=== PATIENT | male | born 1990 | race Two or more races ===

== ENCOUNTER 2017-01-24 22:26 | Emergency (ER) | payer OTHER ==
[2017-01-24] MEDS ORDERED: ONDANSETRON 4 MG/2 ML VIAL IVP STA (22:50)
[2017-01-24] MEDS ORDERED: SODIUM CHLORIDE 0.9% 1,000 ML IV ONE (22:50)
[2017-01-24] MEDS ORDERED: LOPERAMIDE 2 MG CAPSULE PO STA (22:51)
[2017-01-24] MEDS ORDERED: LOPERAMIDE 2 MG CAPSULE PO ONE (23:08)
[2017-01-24] MEDS ORDERED: ONDANSETRON 4 MG/2 ML VIAL ONE (23:08)
[2017-01-24 23:11] LABS: BASOPHILS # (AUTO) 0.1 10^3/uL (0.0-0.1); BASOPHILS % (AUTO) 0.3 %; EOSINOPHILS # (AUTO) 0.3 10^3/uL (0.0-0.7); EOSINOPHILS % (AUTO) 1.3 %; HCT - HEMATOCRIT 51.8 % (42.0-52.0); HGB - HEMOGLOBIN 17.8 g/dL (14.0-18.0); LYMPHOCYTES # (AUTO) 1.1 10^3/uL (1.5-3.5); LYMPHOCYTES % (AUTO) 4.6 %; MEAN CORPUSCULAR HEMOGLOBIN 29.3 pg (27.0-31.0); MEAN CORPUSCULAR HGB CONC 34.4 g/dL (32.0-36.0); MEAN CORPUSCULAR VOLUME 85.1 fL (80.0-94.0); MEAN PLATELET VOLUME 7.5 fL (7.4-11.4); MONOCYTES # (AUTO) 1.5 10^3/uL (0.0-1.0); MONOCYTES % (AUTO) 6.3 %; NEUTROPHILS # (AUTO) 20.7 10^3/uL (1.5-6.6); NEUTROPHILS % (AUTO) 87.5 %; RED BLOOD COUNT 6.09 10^6/uL (4.70-6.10); RED CELL DISTRIBUTION WIDTH 12.6 % (12.0-15.0); UNCORRECTED WHITE BLOOD COUNT 23.7 x10^3/uL; WHITE BLOOD COUNT 23.7 x10^3/uL (4.8-10.8)
[2017-01-24 23:18] LABS: ALBUMIN/GLOBULIN RATIO 1.2 (1.0-2.2); BILIRUBIN,TOTAL 0.8 mg/dL (0.2-1.0); CALCIUM 10.2 mg/dL (8.5-10.3); CREATININE 1.1 mg/dL (0.6-1.2); POTASSIUM 4.1 mmol/L (3.5-5.0); TOTAL PROTEIN 9.6 g/dL (6.7-8.2)
[2017-01-24 23:23] LABS: BILIRUBIN,URINE NEGATIVE (NEGATIVE); UA CHARGE (STRIP ONLY) YES; UR CULTURE IF IND NOT INDICATED
[2017-01-25] MEDS ORDERED: SODIUM CHLORIDE 0.9% 1,000 ML IV ONE ×2 (00:38→04:36)
[2017-01-25] MEDS ORDERED: ACETAMINOPHEN 1,000 MG/100 ML 100 ML IV STA (00:39)
[2017-01-25] MEDS ORDERED: ACETAMINOPHEN 1,000 MG/100 ML 100 ML IV ONE (01:06)
[2017-01-25] MEDS ORDERED: ONDANSETRON 4 MG/2 ML VIAL IVP STA (03:04)
[2017-01-25] MEDS ORDERED: ONDANSETRON 4 MG/2 ML VIAL ONE (03:13)
[2017-01-25] MEDS ORDERED: IOPAMIDOL-300 100 ML VIAL ONE (04:43)
[2017-01-25] MEDS ORDERED: IOPAMIDOL-300 100 ML VIAL IVP ONE (05:11)
--- NOTE | 2017-01-25 05:26 | CT Preliminary Report ---
Exam: CT ABDOMEN/PELVIS W/ IMPRESSION: 1. Fatty liver. 2. Fluid-filled large and small bowel without evidence of obstruction. Findings are nonspecific. Mild enterocolitis is possible. 3. No appendicitis or diverticulitis seen. [facility] SITE ID: [id number]
--- NOTE | 2017-01-25 05:29 | CT Report ---
EXAM: CT ABDOMEN AND PELVIS EXAM DATE: 01/25/2017 05:01 AM. CLINICAL HISTORY: Heme+ diarrhea with WBC 23.7. Lower abdominal pain. COMPARISONS: None. TECHNIQUE: Routine helical CT imaging was performed through the abdomen and pelvis. IV contrast: 100 ML ISOVUE 300. Enteric contrast: No. Reconstructions: Coronal and sagittal. In accordance with CT protocol optimization, one or more of the following dose reduction techniques w ere utilized for this exam: automated exposure control, adjustment of mA and/or KV based on patient s ize, or use of iterative reconstructive technique. FINDINGS: Lung Bases: Unremarkable. Liver: Fatty infiltration. Gallbladder/Bile Ducts: Unremarkable. Spleen: Normal. Pancreas: Normal. Adrenal Glands: Normal. Kidneys: Normal. No masses or hydronephrosis. Peritoneal Cavity/Bowel: Nonspecific nondilated fluid-filled large and small bowel loops. No bowel ob struction seen. No diverticulitis. No lymphadenopathy. No free air or free fluid. Appendix appears no rmal. Pelvic Organs: Normal. The bladder and visualized pelvic organs are within normal limits. Vasculature: No aneurysms or other significant abnormality. Bones: No significant abnormality. Other: None. IMPRESSION: 1. Fatty liver. 2. Fluid-filled large and small bowel without evidence of obstruction. Findings are nonspecific. Mild enterocolitis is possible. 3. No appendicitis or diverticulitis seen. [facility] Referring Provider Line: [phone] SITE ID: [id number]
--- NOTE | 2017-01-25 05:38 | ED Physician Documentation ---
PD HPI ABD PAIN - Stated complaint Stated Complaint: N/V/D/F/C - Chief complaint Chief Complaint: Abd Pain - History obtained from History obtained from: Patient - History of Present Illness Timing - onset: How many hours ago (4) Timing - details: Still present Quality: Cramping Location: All over / everywhere Associated symptoms: Nausea, Diarrhea. No: Fever, Vomiting Similar symptoms before: Has not had sx before - Additional information Additional information: The patient is an otherwise healthy 26-year-old male who presents with diarrhea and cramping abdominal pain that started about 4 hours prior to arrival. He has had multiple episodes of watery diarrhea. He reports associated nausea, without vomiting. He denies fever, or dysuria. He last ate just prior to the onset of his symptoms when he had chicken tenders from [employer]. He denies history of similar symptoms in the past. Review of Systems Constitutional: reports: Chills, Myalgias. denies: Fever Ears: denies: Tinnitus/ringing Nose: denies: Congestion Throat: denies: Sore throat Cardiac: denies: Chest pain / pressure Respiratory: denies: Dyspnea, Cough GI: reports: Abdominal Pain, Nausea, Diarrhea. denies: Vomiting : denies: Dysuria Skin: denies: Rash Musculoskeletal: denies: Back pain, Extremity pain Neurologic: denies: Headache PD PAST MEDICAL HISTORY - Past Medical History Cardiovascular: None Respiratory: None Neuro: None Endocrine/Autoimmune: None GI: None - Present Medications Home Medications: Ambulatory Orders Medication Instructions Recorded Confirmed Promethazine [Phenergan] 25 - 50 mg PO Q6H PRN #10 tab 01/25/17 - Allergies Allergies/Adverse Reactions: Allergies Allergy/AdvReac Type Severity Reaction Status Date / Time No Known Drug Allergies Allergy Verified 01/24/17 22:33 - Social History Does the pt smoke?: No Smoking Status: Never smoker - Immunizations Immunizations are current?: Yes PD ED PE NORMAL - Vitals Vital signs reviewed: Yes (borderline hypertension.) - General General: Alert and oriented X 3, Well developed/nourished - HEENT HEENT: Atraumatic, EOMI, Moist mucous membranes, Pharynx benign - Neck Neck: Supple, no meningeal sign, No adenopathy - Cardiac Cardiac: RRR, No murmur - Respiratory Respiratory: No respiratory distress, Clear bilaterally - Abdomen Abdomen: Soft, Non distended, No organomegaly, Other (No focal tenderness to palpation, and no rebound or guarding. Slightly decreased bowel tones.) - Back Back: No CVA TTP - Derm Derm: No rash - Extremities Extremities: No edema, No calf tenderness / cord - Neuro Neuro: Alert and oriented X 3, No motor deficit, Normal speech Results - Vitals Vitals: Vital Signs - 24 hr 01/25/17 01/25/17 01/25/17 00:14 02:32 04:43 Temperature 37.2 C 37.7 C H 36.3 C L Heart Rate 91 89 97 Respiratory 20 16 12 Rate Blood Pressure 104/49 L 105/46 L 101/61 O2 Saturation 96 95 98 01/25/17 01/25/17 06:44 08:05 Temperature 36.9 C 36.8 C Heart Rate 93 91 Respiratory 15 15 Rate Blood Pressure 134/80 H 128/74 O2 Saturation 97 99 Oxygen O2 Source Room air - Labs Labs: Laboratory Tests 01/24/17 01/24/17 01/24/17 23:00 23:00 23:00 WBC 23.7 H RBC 6.09 Hgb 17.8 Hct 51.8 MCV 85.1 MCH 29.3 MCHC 34.4 RDW 12.6 Plt Count 274 MPV 7.5 Neut # 20.7 H Lymph # 1.1 L Butts # 1.5 H Eos # 0.3 Baso # 0.1 Absolute Nucleated RBC 0.00 Nucleated RBC % 0.0 Sodium 137 Potassium 4.1 Chloride 100 L Carbon Dioxide 25 Anion Gap 12.0 BUN 17 Creatinine 1.1 Estimated GFR (MDRD) 81 L Glucose 106 H Calcium 10.2 Total Bilirubin 0.8 AST 38 ALT 99 H Alkaline Phosphatase 48 Total Protein 9.6 H Albumin 5.3 Globulin 4.3 H Albumin/Globulin Ratio 1.2 Lipase 17 L Urine Color DARK YELLOW Urine Clarity CLEAR Urine pH 6.0 Ur Specific [place] >=1.030 H Urine Protein TRACE Urine Glucose (UA) NEGATIVE Urine Ketones NEGATIVE Urine Occult Blood NEGATIVE Urine Nitrite NEGATIVE Urine Bilirubin NEGATIVE Urine Urobilinogen 0.2 (NORMAL) Ur Leukocyte Esterase NEGATIVE Ur Microscopic Review NOT INDICATED Urine Culture Comments NOT INDICATED - Rads (name of study) CT abd/pelvis with IV contrast Radiology: Prelim report reviewed, EMP read contemporaneously, See rad report ( 1. Fatty liver. 2. Fluid-filled large and small bowel without evidence of obstruction. Findings are nonspecific. Mild enterocolitis is possible. 3. No appendicitis or diverticulitis seen.) PD MEDICAL DECISION MAKING - ED course Complexity details: reviewed results, re-evaluated patient, considered differential, d/w patient ED course: The patient's presentation is most consistent with acute gastroenteritis versus food poisoning with profuse diarrhea, which is Hemoccult positive. His white count is quite significantly elevated at 23.7. Because of the severity of his symptoms, CT scan of the abdomen and pelvis with IV contrast was performed. It revealed normal appendix and no evidence of diverticulitis. There is a healed fluid-filled large and small bowel, consistent with mild enterocolitis. Treatment in the emergency department included administration of Imodium 2 mg orally, normal saline 2100 mL IV, Zofran 2 mg IV 2, and Ofirmev 1 g IV. The patient did have 2 episodes of vomiting while in the emergency department, and developed a low-grade temp of 37.7. Following the above treatment he felt subjectively improved, and demonstrated ability to drink water without recurrent nausea. I discussed with him the likely diagnosis and anticipated course of illness, symptomatic treatment and outpatient follow-up, as well as potentially worrisome signs or symptoms that should prompt reevaluation in the emergency department. He is being discharged with prescription for Phenergan. Departure - Departure Disposition: 01 Home, Self Care Clinical Impression: Gastroenteritis, Heme + stool Vomiting Qualifiers: Vomiting type: unspecified Vomiting Intractability: non-intractable Nausea presence: with nausea Qualified Code(s): R11.2 - Nausea with vomiting, unspecified Diarrhea Qualifiers: Diarrhea type: unspecified type Qualified Code(s): R19.7 - Diarrhea, unspecified Condition: Stable Instructions: ED Diet Vomiting Diarrhea Follow-Up: [facility] josé antoniojumana Lipscomb [Provider Group] Prescriptions: Promethazine [Phenergan] 25 - 50 mg PO Q6H PRN #10 tab PRN Reason: Nausea / Vomiting Comments: Drink plenty of fluids. You can use Phenergan as prescribed if needed for nausea. Follow up with your primary physician within 1 week. Call to schedule appointment. Return to the emergency department if you develop increasing abdominal pain, persistent vomiting, recurrent dehydration, or otherwise worsening symptoms. Forms: Activity restrictions Discharge Date/Time: 01/25/17 09:09
[2017-01-25 08:06] VITALS: BP 128/74
== END 2017-01-25 09:09 | disposition home or self-care (01) ==
LOC: ED 22:26
DX: K52.9 Noninfective gastroenteritis and colitis, unspecified (principal); R19.5 Other fecal abnormalities
CPT/HCPCS: 36415; 74177; 80053; 81003; 83690; 85025; 96361; 96365; 96374; 96376; 99283; 99284; A9270; J0131; Q9967; 81001; 87086

== ENCOUNTER 2018-09-04 10:52 | Emergency (ER) | payer OTHER ==
[2018-09-04 10:59] VITALS: BP 157/97
[2018-09-04] MEDS ORDERED: IBUPROFEN 800 MG TABLET PO STA (11:46)
[2018-09-04] MEDS ORDERED: DEXAMETHASONE 10 MG/ML VIAL PO STA (11:46)
[2018-09-04] MEDS ORDERED: CHERRY SYRUP 10 ML UDC PO ONE (11:46)
[2018-09-04] MEDS ORDERED: COLCHICINE 0.6 MG TABLET PO STA (11:46)
--- NOTE | 2018-09-04 11:49 | ED Physician Documentation ---
History of Present Illness - Stated complaint Stated Complaint: RT FT PAIN - Chief complaint Chief Complaint: Ext Problem - History obtained from History obtained from: Patient - History of Present Illness Timing: How many weeks ago (1) Pain level max: 6 Pain level now: 5 - Additonal information Additional information: R 1st MTP joint pain, swelling, redness. Has occurred x 2 in the past. Worse with walking. Better with rest. No fevers. No injury. Has had x-rays of there in the past which reportedly showed a bone spur. Review of Systems Constitutional: denies: Fever, Chills GI: denies: Vomiting, Diarrhea Skin: denies: Rash Musculoskeletal: denies: Neck pain, Back pain Neurologic: denies: Headache PD PAST MEDICAL HISTORY - Past Medical History Cardiovascular: None Respiratory: None Endocrine/Autoimmune: None GI: None - Present Medications Home Medications: Ambulatory Orders Medication Instructions Recorded Confirmed Ibuprofen [Motrin] 800 mg PO Q8H PRN #30 tablet 09/04/18 - Allergies Allergies/Adverse Reactions: Allergies Allergy/AdvReac Type Severity Reaction Status Date / Time No Known Drug Allergies Allergy Verified 09/04/18 10:59 - Social History Does the pt smoke?: No Smoking Status: Never smoker - Immunizations Immunizations are current?: Yes PD ED PE NORMAL - Vitals Vital signs reviewed: Yes - General General: Alert and oriented X 3, No acute distress - Derm Derm: Warm and dry - Extremities Extremities: Other (Redness and swelling to the right first MTP joint. Neurovascularly intact.) - Neuro Neuro: Alert and oriented X 3 Results - Vitals Vitals: Vital Signs - 24 hr 09/04/18 10:57 Temperature 36.6 C Heart Rate 90 Respiratory 18 Rate Blood Pressure 157/97 H O2 Saturation 100 Oxygen O2 Source Room air PD MEDICAL DECISION MAKING - ED course Complexity details: considered differential, d/w patient ED course: 27-year-old male with what appears to be gout. Given colchicine, dexamethasone will place on Motrin for home. No evidence of septic joint. No evidence of fracture. Patient counseled regarding signs and symptoms for which I believe and urgent re-evaluation would be necessary. Patient with good understanding of and agreement to plan and is comfortable going home at this time This document was made in part using voice recognition software. While efforts are made to proofread this document, sound alike and grammatical errors may occur. Departure - Departure Disposition: Home, Self Care Clinical Impression: Gout Qualifiers: Gout site: toe Gout etiology: unspecified cause Chronicity: acute Laterality: right Qualified Code(s): M10.9 - Gout, unspecified Condition: Good Health Concerns: Toe swelling Plan of Treatment: NSAIDs, colchicine, steroids Care Goals: Improved swelling Assessment: Gout Instructions: ED Arthritis Gout, ED Diet Gout Follow-Up: your,doctor in 1 week [Other] Prescriptions: Ibuprofen [Motrin] 800 mg PO Q8H PRN #30 tablet PRN Reason: PAIN &/OR FEVER Comments: Use the medications as prescribed. Return if you worsen. This should improve over the next 24 hours. Discharge Date/Time: 09/04/18 12:26
== END 2018-09-04 12:26 | disposition home or self-care (01) ==
LOC: ED 10:52
DX: M10.071 Idiopathic gout, right ankle and foot (principal)
CPT/HCPCS: 99283; A9270

== ENCOUNTER 2022-07-07 01:14 | Emergency (ER) | payer OTHER ==
[2022-07-07] MEDS ORDERED: COLCHICINE 0.6 MG TABLET PO STA (02:11)
--- NOTE | 2022-07-07 02:14 | ED Physician Documentation ---
History of Present Illness - Stated complaint Stated Complaint: RIGHT FOOT PX - Chief complaint Chief Complaint: General - History obtained from History obtained from: Patient - Additonal information Additional information: 31-year-old male presents with right first toe pain worsening over the past day, refractory to ibuprofen at home. Denies trauma or fever. this is similar to prior gout flares. Review of Systems Musculoskeletal: reports: Extremity pain PD PAST MEDICAL HISTORY - Past Medical History Past Medical History: Yes Cardiovascular: None Respiratory: None Endocrine/Autoimmune: None GI: None Other Past Medical History: Gout - Past Surgical History Past Surgical History: No - Present Medications Home Medications: Ambulatory Orders Medication Instructions Recorded Confirmed Ibuprofen [Motrin] 800 mg PO Q8H PRN #30 tablet 09/04/18 Colchicine 0.6 mg PO BID 10 Days #20 tablet 07/07/22 - Allergies Allergies/Adverse Reactions: Allergies Allergy/AdvReac Type Severity Reaction Status Date / Time No Known Drug Allergies Allergy Verified 09/04/18 10:59 - Social History Does the pt smoke?: No Smoking Status: Never smoker Does the pt drink ETOH?: No Does the pt have substance abuse?: No - Immunizations Immunizations are current?: Yes - POLST Patient has POLST: No PD ED PE NORMAL - Vitals Vital signs reviewed: Yes - General General: Alert and oriented X 3 - HEENT HEENT: Atraumatic, PERRL, EOMI - Derm Derm: Normal color, Warm and dry, Other (erythema to R first mtp joint) - Extremities Extremities: No deformity, Other (tender mtp joint of R foot. 2+ dp pulse. normal sensation and movement) - Neuro Neuro: No motor deficit, No sensory deficit - Psych Psych: Normal mood, Normal affect Results - Vitals Vitals: Vital Signs - 24 hr 07/07/22 01:21 Temperature 35.7 C L Heart Rate 66 Respiratory 16 Rate Blood Pressure 179/94 H O2 Saturation 98 Oxygen O2 Source Room air PD Medical Decision Making - ED course ED course: 31-year-old man presents with acute gout flare similar to prior episodes except worse and refractory to ibuprofen. Colchicine provided and prescription given. Return precautions given. Plan to follow-up with his primary care provider. Departure - Departure Disposition: 01 Home, Self Care Clinical Impression: Gout Condition: Good Instructions: Gout Attack Tx Prescriptions: Colchicine 0.6 mg PO BID 10 Days #20 tablet Comments: You were seen in the emergency department for gout. A prescription was sent electronically to your pharmacy ([facility] in [place]). Please follow-up with your primary care provider and return to the emergency department for new or worsening symptoms or other concerns.
[2022-07-07 02:20] VITALS: BP 158/94
== END 2022-07-07 02:20 | disposition home or self-care (01) ==
LOC: ED 01:14
DX: M10.9 Gout, unspecified (principal)
CPT/HCPCS: 99282; 99283; A9270